=== PATIENT | female | born 1985 | race Caucasian/White ===

== ENCOUNTER 2020-09-07 07:12 | Outpatient (CLI) | payer OTHER ==
[~2020-09-07 07:12] MED LIST: SYNTHROID75 MCG
== END 2020-09-07 07:26 | disposition home or self-care (01) ==
LOC: LAB 07:12
PROVIDERS: ATTEND Internal Medicine Hematology & Oncology
DX: D50.8 Other iron deficiency anemias (principal); R79.89 Other specified abnormal findings of blood chemistry; I10 Essential (primary) hypertension; R74.02 Elevation of levels of lactic acid dehydrogenase [LDH]; K76.89 Other specified diseases of liver; D51.1 Vitamin B12 deficiency anemia due to selective vitamin B12 malabsorption with proteinuria; D51.0 Vitamin B12 deficiency anemia due to intrinsic factor deficiency; E06.3 Autoimmune thyroiditis; E22.1 Hyperprolactinemia; D68.8 Other specified coagulation defects; R97.0 Elevated carcinoembryonic antigen [CEA]; D69.1 Qualitative platelet defects; R97.8 Other abnormal tumor markers; E03.8 Other specified hypothyroidism; D35.2 Benign neoplasm of pituitary gland

== ENCOUNTER 2020-09-09 07:12 | Outpatient (CLI) | payer OTHER | END 2020-09-09 07:28 | disposition home or self-care (01) | LOC: MRI 07:12 | PROVIDERS: ATTEND Internal Medicine Hematology & Oncology | DX: D47.3 Essential (hemorrhagic) thrombocythemia (principal); E03.8 Other specified hypothyroidism; E22.1 Hyperprolactinemia; D35.2 Benign neoplasm of pituitary gland | CPT/HCPCS: 70553 ==

== ENCOUNTER 2020-10-18 10:53 | Outpatient (CLI) | payer OTHER | END 2020-10-18 11:06 | disposition home or self-care (01) | LOC: SONOGRAMA 10:53 | PROVIDERS: ATTEND Internal Medicine Hematology & Oncology | DX: E04.2 Nontoxic multinodular goiter (principal); D47.3 Essential (hemorrhagic) thrombocythemia; E03.8 Other specified hypothyroidism; E22.1 Hyperprolactinemia; D35.2 Benign neoplasm of pituitary gland ==

== ENCOUNTER 2020-11-16 09:14 | Outpatient (CLI) | payer OTHER | END 2020-11-16 09:26 | disposition home or self-care (01) | LOC: LAB 09:14 | PROVIDERS: ATTEND Internal Medicine Hematology & Oncology | DX: D50.8 Other iron deficiency anemias (principal); I10 Essential (primary) hypertension; R74.02 Elevation of levels of lactic acid dehydrogenase [LDH]; K76.89 Other specified diseases of liver; E03.8 Other specified hypothyroidism; D47.3 Essential (hemorrhagic) thrombocythemia; E22.1 Hyperprolactinemia; D35.2 Benign neoplasm of pituitary gland ==

== ENCOUNTER → 2021-01-01 09:04 | Outpatient (CLI) | payer OTHER | END | disposition home or self-care (01) | LOC: LAB 09:04 | PROVIDERS: ATTEND Internal Medicine Hematology & Oncology | DX: D50.8 Other iron deficiency anemias (principal); I10 Essential (primary) hypertension; R74.02 Elevation of levels of lactic acid dehydrogenase [LDH]; K76.89 Other specified diseases of liver; E22.1 Hyperprolactinemia; D47.3 Essential (hemorrhagic) thrombocythemia; E03.8 Other specified hypothyroidism; D35.2 Benign neoplasm of pituitary gland ==

== ENCOUNTER 2021-07-08 09:12 | Outpatient (CLI) | payer OTHER | END 2021-07-08 14:19 | disposition home or self-care (01) | LOC: LAB 09:12 | PROVIDERS: ATTEND Internal Medicine Hematology & Oncology | DX: D50.8 Other iron deficiency anemias (principal); R79.9 Abnormal finding of blood chemistry, unspecified; I10 Essential (primary) hypertension; R74.02 Elevation of levels of lactic acid dehydrogenase [LDH]; K76.89 Other specified diseases of liver; D55.0 Anemia due to glucose-6-phosphate dehydrogenase [G6PD] deficiency; E22.1 Hyperprolactinemia; D47.3 Essential (hemorrhagic) thrombocythemia; E03.8 Other specified hypothyroidism; D35.2 Benign neoplasm of pituitary gland ==

== ENCOUNTER → 2021-08-27 07:29 | Outpatient (CLI) | payer OTHER | END | disposition home or self-care (01) | LOC: LAB 07:29 | PROVIDERS: ATTEND Radiology Diagnostic Radiology | DX: D35.2 Benign neoplasm of pituitary gland (principal) ==

== ENCOUNTER 2021-08-29 08:06 | Outpatient (CLI) | payer OTHER | END 2021-08-29 08:23 | disposition home or self-care (01) | LOC: MRI 08:06 | PROVIDERS: ATTEND Internal Medicine | DX: D35.2 Benign neoplasm of pituitary gland (principal); E22.1 Hyperprolactinemia | CPT/HCPCS: 70553 ==

== ENCOUNTER 2021-11-22 07:15 | Outpatient (CLI) | payer OTHER | END 2021-11-22 07:34 | disposition home or self-care (01) | LOC: LAB 07:15 | PROVIDERS: ATTEND Internal Medicine Hematology & Oncology | DX: E03.8 Other specified hypothyroidism (principal); D35.2 Benign neoplasm of pituitary gland; D50.8 Other iron deficiency anemias; R79.9 Abnormal finding of blood chemistry, unspecified; I10 Essential (primary) hypertension; R74.02 Elevation of levels of lactic acid dehydrogenase [LDH]; K76.89 Other specified diseases of liver; E22.1 Hyperprolactinemia; D47.3 Essential (hemorrhagic) thrombocythemia ==

== ENCOUNTER 2021-11-27 07:30 | Outpatient (CLI) | payer OTHER | END 2021-11-27 08:06 | disposition home or self-care (01) | LOC: SONOGRAMA 07:30 | PROVIDERS: ATTEND Internal Medicine | DX: E04.2 Nontoxic multinodular goiter (principal) ==

== ENCOUNTER 2022-03-21 08:06 | Outpatient (CLI) | payer OTHER | END 2022-03-21 08:08 | disposition home or self-care (01) | LOC: LAB 08:06 | PROVIDERS: ATTEND Internal Medicine Geriatric Medicine | DX: D50.9 Iron deficiency anemia, unspecified (principal); E03.9 Hypothyroidism, unspecified; E78.2 Mixed hyperlipidemia; I11.9 Hypertensive heart disease without heart failure; E56.8 Deficiency of other vitamins; N39.0 Urinary tract infection, site not specified; Z12.11 Encounter for screening for malignant neoplasm of colon; R19.5 Other fecal abnormalities; E55.9 Vitamin D deficiency, unspecified; N19 Unspecified kidney failure; E11.9 Type 2 diabetes mellitus without complications; D50.8 Other iron deficiency anemias; R79.9 Abnormal finding of blood chemistry, unspecified; I10 Essential (primary) hypertension; R74.02 Elevation of levels of lactic acid dehydrogenase [LDH]; K76.89 Other specified diseases of liver; D63.8 Anemia in other chronic diseases classified elsewhere; D55.0 Anemia due to glucose-6-phosphate dehydrogenase [G6PD] deficiency; E22.1 Hyperprolactinemia; D47.3 Essential (hemorrhagic) thrombocythemia; E03.8 Other specified hypothyroidism; D35.2 Benign neoplasm of pituitary gland ==

== ENCOUNTER 2022-09-22 06:48 | Outpatient (CLI) | payer OTHER | END 2022-09-22 07:08 | disposition home or self-care (01) | LOC: LAB 06:48 | PROVIDERS: ATTEND Internal Medicine | DX: E22.1 Hyperprolactinemia (principal); E03.8 Other specified hypothyroidism; I10 Essential (primary) hypertension; E55.9 Vitamin D deficiency, unspecified; E88.81 Metabolic syndrome and other insulin resistance; E03.9 Hypothyroidism, unspecified; E04.0 Nontoxic diffuse goiter; Z13.0 Encounter for screening for diseases of the blood and blood-forming organs and certain disorders involving the immune mechanism; E66.9 Obesity, unspecified; R73.09 Other abnormal glucose; E78.00 Pure hypercholesterolemia, unspecified; F51.01 Primary insomnia; M19.90 Unspecified osteoarthritis, unspecified site; L68.0 Hirsutism; R89.1 Abnormal level of hormones in specimens from other organs, systems and tissues; N95.1 Menopausal and female climacteric states; R68.82 Decreased libido; E65 Localized adiposity; R94.5 Abnormal results of liver function studies; N39.0 Urinary tract infection, site not specified; N95.9 Unspecified menopausal and perimenopausal disorder; D50.8 Other iron deficiency anemias; R79.9 Abnormal finding of blood chemistry, unspecified; R74.02 Elevation of levels of lactic acid dehydrogenase [LDH]; K76.89 Other specified diseases of liver; D51.8 Other vitamin B12 deficiency anemias; D47.3 Essential (hemorrhagic) thrombocythemia; D35.2 Benign neoplasm of pituitary gland ==

== ENCOUNTER 2023-05-19 07:08 | Outpatient (CLI) | payer OTHER | END 2023-05-19 07:09 | disposition home or self-care (01) | LOC: NUCLEAR 07:08 | PROVIDERS: ATTEND Internal Medicine Hematology & Oncology | DX: M17.11 Unilateral primary osteoarthritis, right knee (principal); M16.12 Unilateral primary osteoarthritis, left hip; D75.839 Thrombocytosis, unspecified; E03.8 Other specified hypothyroidism; E22.1 Hyperprolactinemia; D35.2 Benign neoplasm of pituitary gland ==

== ENCOUNTER 2023-10-26 07:38 | Outpatient (CLI) | payer OTHER | END 2023-10-26 07:44 | disposition home or self-care (01) | LOC: MAMO-SONO 07:38 | PROVIDERS: ATTEND Internal Medicine Geriatric Medicine | DX: C50.919 Malignant neoplasm of unspecified site of unspecified female breast (principal); N63 Unspecified lump in breast; Z12.31 Encounter for screening mammogram for malignant neoplasm of breast; N64.4 Mastodynia; N60.12 Diffuse cystic mastopathy of left breast; N60.11 Diffuse cystic mastopathy of right breast ==

== ENCOUNTER 2023-11-05 07:15 | Outpatient (CLI) | payer OTHER | END 2023-11-05 07:26 | disposition home or self-care (01) | LOC: MRI 07:15 | PROVIDERS: ATTEND Internal Medicine | DX: D35.2 Benign neoplasm of pituitary gland (principal); E27.1 Primary adrenocortical insufficiency | CPT/HCPCS: 70553 ==

== ENCOUNTER 2024-07-31 07:11 | Outpatient (CLI) | payer OTHER | END 2024-07-31 07:30 | disposition home or self-care (01) | LOC: MRI 07:11 | PROVIDERS: ATTEND Neuromusculoskeletal Medicine & OMM | DX: D49.6 Neoplasm of unspecified behavior of brain (principal); G40.909 Epilepsy, unspecified, not intractable, without status epilepticus | CPT/HCPCS: 70553 ==

== ENCOUNTER 2024-11-15 07:24 | Outpatient (CLI) | payer OTHER | END 2024-11-15 07:29 | disposition home or self-care (01) | LOC: MAMO-SONO 07:24 | PROVIDERS: ATTEND Internal Medicine Hematology & Oncology | DX: M75.101 Unspecified rotator cuff tear or rupture of right shoulder, not specified as traumatic (principal); N63 Unspecified lump in breast; N64.4 Mastodynia; D51.3 Other dietary vitamin B12 deficiency anemia; D75.839 Thrombocytosis, unspecified; E03.8 Other specified hypothyroidism; E22.1 Hyperprolactinemia; D35.2 Benign neoplasm of pituitary gland ==

== ENCOUNTER 2024-11-15 08:59 | Outpatient (CLI) | payer OTHER | END 2024-11-15 09:00 | disposition home or self-care (01) | LOC: NUCLEAR 08:59 | PROVIDERS: ATTEND Internal Medicine Geriatric Medicine | DX: M81.0 Age-related osteoporosis without current pathological fracture (principal) ==